=== PATIENT | female | born 1980 | race Caucasian/White ===

== ENCOUNTER 2020-01-22 13:50 | Outpatient (CLI) | payer OTHER, SELFPAY ==
[~2020-01-22 13:50] MED LIST: PREN1SGL25 PO
== END 2020-01-22 23:59 | disposition home or self-care (01) ==
LOC: MLB 13:50 → EDSTATUS 02-06 07:30
PROVIDERS: ATTEND Internal Medicine Gastroenterology
DX: Z20.828 Contact with and (suspected) exposure to other viral communicable diseases (principal); K62.5 Hemorrhage of anus and rectum; R10.9 Unspecified abdominal pain; D64.9 Anemia, unspecified
CPT/HCPCS: U0003

== ENCOUNTER 2021-01-12 01:25 | Emergency (ER) | payer OTHER, SELFPAY ==
[~2021-01-12] VITALS: Ht 175.3 cm; Wt 68.0 kg
[2021-01-12 01:27] VITALS: BP 134/56
--- NOTE | 2021-01-12 01:30 | NUR ---
TO LOBBY A/W BED AMBULATORY
--- NOTE | 2021-01-12 03:24 | NUR ---
PT TAKEN TO BED 2
[2021-01-12 04:15] LABS: BASOPHILS # (AUTO) 0.1 K/uL (0.00-0.22); EOSINOPHILS # (AUTO) 0.3 K/uL (0-0.4); HEMOGLOBIN 10.5 g/dL (12.0-16.0); LYMPHOCYTES # (AUTO) 2.9 K/uL (2.5-16.5); LYMPHOCYTES % (AUTO) 43.3 % (20.5-51.1); MEAN CORPUSCULAR HEMOGLOBIN 24 pg (27-31); MEAN CORPUSCULAR HGB CONC 32 g/dL (33-37); MEAN CORPUSCULAR VOLUME 75.8 fL (80-94); MONOCYTES # (AUTO) 0.6 K/uL (0.8-1.0); MONOCYTES % (AUTO) 8.2 % (1.7-9.3); NEUTROPHILS # (AUTO) 2.9 K/uL (1.8-7.7); NEUTROPHILS % (AUTO) 42.5 % (42.2-75.2); PLATELET COUNT (AUTO) 438 K/uL (140-450); RED BLOOD CELL COUNT(AUTO) 4.35 MIL/uL (4.20-5.40); RED CELL DISTRIBUTION WIDTH 17.1 % (11.6-13.7); WHITE BLOOD COUNT (AUTO) 6.8 K/uL (4.8-10.8)
[2021-01-12 04:29] LABS: ALBUMIN 3.8 g/dL (3.4-5.0); ANION GAP 8.8 (8-16); CARBON DIOXIDE 29.3 mmol/L (21-32); CREATININE 0.7 mg/dL (0.6-1.3); POTASSIUM 3.1 mmol/L (3.5-5.1); TOTAL BILIRUBIN 0.2 mg/dL (0.0-1.0)
[2021-01-12] MEDS ORDERED: PERM5CRE3 TP (05:08)
[2021-01-12] MEDS: POTASSIUM CHLORIDE 10 MEQ TABER PO ONE (05:25)
[2021-01-12 05:36] VITALS: BP 117/85
--- NOTE | 2021-01-12 05:36 | NUR ---
Patient discharged with v/s stable. Written and verbal after care instructions given and explained. Patient alert, oriented and verbalized understanding of instructions. Ambulatory with steady gait. All questions addressed prior to discharge. ID band removed. Patient advised to follow up with PMD. Rx of Permethrin given. Patient educated on indication of medication including possible reaction and side effects. Opportunity to ask questions provided and answered.
== END 2021-01-12 05:36 | disposition home or self-care (01) ==
LOC: MED 01:25
DX: E87.6 Hypokalemia (principal); R06.02 Shortness of breath; B86 Scabies; I10 Essential (primary) hypertension; Z79.899 Other long term (current) drug therapy
CPT/HCPCS: 36415; 71045; 80053; 83880; 84484; 85025; 93005; 99285; Q0092

== ENCOUNTER 2021-01-22 00:45 | Emergency (ER) | payer OTHER ==
[~2021-01-22] VITALS: Ht 172.7 cm; Wt 82.1 kg
[~2021-01-22 00:45] MED LIST changes: +PERM5CRE3 TP
[2021-01-22 00:49] VITALS: BP 140/89
--- NOTE | 2021-01-22 00:55 | NUR ---
PT TO A/W IN LOBBY FOR BED
--- NOTE | 2021-01-22 02:55 | NUR ---
PT AMBULATORY TO BED #3
[2021-01-22] MEDS ORDERED: PERM324. MC (03:35)
[2021-01-22] MEDS ORDERED: ELIMC TP (03:35)
--- NOTE | 2021-01-22 03:39 | NUR ---
SEEN AND DISCHARGED BY LUPE BELL. NO NURSING INTERVENTIONS NEEDED. Patient discharged with v/s stable. Written and verbal after care instructions given and explained. Patient alert, oriented and verbalized understanding of instructions. Ambulatory with steady gait. All questions addressed prior to discharge. ID band removed. Patient advised to follow up with PMD. Rx of PERMETHRIN (ELIMITE 5%) AND PERMETHRIN (NIX COMPLETE) given. Patient educated on indication of medication including possible reaction and side effects. Opportunity to ask questions provided and answered.
== END 2021-01-22 03:39 | disposition home or self-care (01) ==
LOC: MED 00:45
DX: B86 Scabies (principal); I10 Essential (primary) hypertension; Z76.0 Encounter for issue of repeat prescription; Z79.899 Other long term (current) drug therapy
CPT/HCPCS: 81025; 99282